=== PATIENT | female | born 1950 | race Caucasian/White ===

== ENCOUNTER → 2017-03-12 | Outpatient (CLI) | payer MEDICARE, OTHER ==
--- NOTE | 2017-03-12 21:34 | XR ---
EXAMINATION TYPE: XR chest 2V DATE OF EXAM: 03/12/2017 COMPARISON: Prior chest x-ray July 10, 2010 HISTORY: Cough per order. TECHNIQUE: Frontal and lateral views of the chest are obtained. FINDINGS: There is chronic parenchymal change without suspicious focal air space opacity, pleural ef fusion, or pneumothorax seen. The cardiac silhouette size is upper limits of normal with atheroscler otic thoracic aorta. There is coronary stent in the LCA distribution superior left heart border. Th e osseous structures are demineralized. IMPRESSION: Chronic changes without suspicious acute infiltrate identified.
== END | disposition home or self-care (01) ==
LOC: RADXRMAIN 16:58
PROVIDERS: ATTEND Internal Medicine
DX: J98.4 Other disorders of lung (principal); R05 Cough
CPT/HCPCS: 71020